=== PATIENT | female | born 1960 | race Caucasian/White ===

== ENCOUNTER 2018-01-25 11:14 | Inpatient (IN) | payer BC ==
[2018-01-19 15:39] LABS: BASOPHILS # (AUTO) 0.1 X10'3 (0-0.2); BASOPHILS % (AUTO) 0.7 % (0-1); EOSINOPHILS # (AUTO) 0.1 X10'3 (0-0.9); EOSINOPHILS % (AUTO) 1.5 % (0-6); LYMPHOCYTES # (AUTO) 1.4 X10'3 (1.1-4.8); LYMPHOCYTES % (AUTO) 16.9 % (21-51); MEAN CORPUSCULAR HEMOGLOBIN 28.7 PG (27.0-31.0); MEAN CORPUSCULAR VOLUME 84.4 FL (78-98); MEAN PLATELET VOLUME 8.5 FL (7.4-10.4); MONOCYTES # (AUTO) 0.5 X10'3 (0-0.9); MONOCYTES % (AUTO) 5.8 % (2-12); NEUTROPHILS # (AUTO) 6.1 X10'3 (1.8-7.7); NEUTROPHILS % (AUTO) 75.1 % (42-75); PRE OP HEMOGLOBIN 13.3 g/dL (12.0-16.0); PRE OP PLATELET COUNT 265 X10'3 (140-440); RED BLOOD COUNT 4.62 X10'6 (4.20-5.60)
[2018-01-19 15:50] LABS: PRE OP PROTIME 10.1 SECONDS (9.0-12.0)
[2018-01-19 16:03] LABS: ALBUMIN 3.9 G/DL (3.4-5.0); ALBUMIN/GLOBULIN RATIO 1.2 (1.1-1.5); ALKALINE PHOSPHATASE 88 IU/L (46-116); BLOOD UREA NITROGEN 16 MG/DL (7-18); CALCIUM 8.6 MG/DL (8.5-10.1); CHLORIDE 106 MMOL/L (99-107); CREATININE 0.84 MG/DL (0.40-0.90); PRE OP ALT 28 U/L (30-65); PRE OP ANION GAP 9 (8-16); PRE OP AST 15 U/L (10-37); PRE OP BILIRUB, TOTAL 0.4 MG/DL (0.0-1.0); PRE OP GLUCOSE 103 MG/DL (70-104); PRE OP SODIUM 145 MMOL/L (135-145); TOTAL CARBON DIOXIDE 30.1 MMOL/L (24-32); TOTAL PROTEIN 7.1 G/DL (6.4-8.2); eGFR 70 ML/MIN
[2018-01-19 16:04] LABS: PRE OP POTASSIUM 3.3 MMOL/L (3.4-5.1)
[2018-01-25] VITALS (17 sets, daily range): BP systolic 96–146; BP diastolic 53–86
[~2018-01-25] VITALS: Ht 167.6 cm; Wt 104.4 kg
[~2018-01-25 11:14] MED LIST: Cefazolin 2GM/50ML dext iso,osmotic IVPB IV ONE; LEVO137T24 PO; LOSA25TA96 PO; acetaminophen 325mg tablet PO ONE; famotidine 20mg tablet PO ONE; gabapentin 300mg capsule PO ONE; metoclopramide 5 mg/ml inj IV ONE; oxyCODONE SR 10mg (sust. release) tab -2 tabs (20mg) PO ONE; ringers solution, lacted 1,000 ML IV SCH; tranexamic acid inj. 1,000 MG in normal saline 100ml IV soln 90 ML IV ONE; vancomycin inj 1,500 MG in normal saline 300ml IV soln IV ONE
[2018-01-25 12:00] LABS: ISTAT ANION GAP 12 (8-12); ISTAT BUN 7 mg/dL (6-19); ISTAT CL 103 mmol/L (99-107); ISTAT CREATININE 0.6 mg/dL (0.6-1.1); ISTAT GLUCOSE 87 mg/dL (70-104); ISTAT HGB 12.6 g/dl (12.0-16.0); ISTAT Hct 37 %PCV (35-48); ISTAT IONIZED CALCIUM 1.16 mmol/L (1.03-1.32); ISTAT K 3.4 mmol/L (3.5-5.1); ISTAT NA 143 mmol/L (135-145); ISTAT TOTAL CO2 28 mmol/L (24-32); ISTAT eGFR > 90 ML/MIN; POC BUN/CREATININE RATIO 11.7 (6.6-38.0)
[2018-01-25] MEDS ORDERED: Thrombin (Bovine) 5,000 unit vial TP ONE (13:09)
[2018-01-25] MEDS ORDERED: ceFAZolin 1000mg inj ONE (13:09)
[2018-01-25] MEDS ORDERED: epiNEPHrine 1 mg/ml inj ONE (13:09)
[2018-01-25] MEDS ORDERED: morphine 10mg/ml inj. ONE (13:09)
[2018-01-25] MEDS ORDERED: ROPIVAcaine 0.5% (5mg/ml) 30ml vial ONE ×2 (13:09→13:11)
[2018-01-25] MEDS ORDERED: ketorolac trometh. 30mg/ml inj. ONE (13:09)
[2018-01-25] MEDS ORDERED: vancomycin 1,000mg inj ONE (13:09)
[2018-01-25] MEDS ORDERED: tetracaine 1% (10mg/ml) pres. free inj. ONE (13:11)
[2018-01-25] MEDS ORDERED: tranexamic acid inj. 1,000 MG in normal saline 100ml IV soln 100 ML IV ONE (13:20)
[2018-01-25] MEDS ORDERED: MIDAZolam 1mg/ml 10ml vial ONE (13:39)
[2018-01-25] MEDS ORDERED: LIDOcaine 2% (20mg/ml) 5ml vial ONE (14:15)
[2018-01-25] MEDS ORDERED: propofol inj 20 ML IV ONE ×3 (14:15)
[2018-01-25] MEDS ORDERED: ondansetron/PF 4mg/2ml inj IV PRN ×3 (14:50→16:30)
[2018-01-25] MEDS ORDERED: ringers solution, lacted 1,000 ML IV SCH (14:50)
[2018-01-25] MEDS ORDERED: meperidine/PF 25mg/ml syringe IV PRN ×2 (14:50)
[2018-01-25] MEDS ORDERED: hydrALAZINE 20mg/ml inj. IV PRN (14:50)
[2018-01-25] MEDS ORDERED: morphine 4 MG/ML inj SYRINge IV PRN ×2 (14:50)
[2018-01-25] MEDS ORDERED: diphenhydrAMINE 50 mg/ml inj IV PRN (14:55)
[2018-01-25] MEDS ORDERED: acetaminophen 325mg tablet PO PRN (16:30)
[2018-01-25] MEDS ORDERED: magnesium hydroxide 30ml (MOM) UD suspension PO PRN (16:30)
[2018-01-25] MEDS ORDERED: oxyCODONE IR 5mg (immed. release) tablet PO PRN (16:30)
[2018-01-25] MEDS ORDERED: diphenhydrAMINE 25mg capsule PO PRN ×2 (16:30)
[2018-01-25] MEDS ORDERED: HYDROmorphone 1 mg/ml syringe IV PRN ×2 (16:30)
[2018-01-25] MEDS ORDERED: bisacodyl 10mg suppository rectal RC PRN (16:30)
[2018-01-25] MEDS: potassium cl 20mEq in 1/2 NS 1,000 ML IV SCH (19:26)
[2018-01-25] MEDS ORDERED: NORMAL SALINE IV ONE (19:30)
[2018-01-25] MEDS ORDERED: TRANEXAMIC ACID IV ONE (19:30)
[2018-01-25] MEDS: acetaminophen 325mg tablet PO SCH (19:37)
[2018-01-25] MEDS: sennosides 8.6mg tablet PO SCH (19:59)
[2018-01-25] MEDS ORDERED: vancomycin/NS 1 GM ADD-VANTAGE 250 ML IV SCH (20:00)
[2018-01-25] MEDS: gabapentin 300mg capsule PO SCH (20:02)
[2018-01-26] VITALS (7 sets, daily range): BP systolic 96–127; BP diastolic 53–65
[2018-01-26] MEDS: potassium cl 20mEq in 1/2 NS 1,000 ML IV SCH ×3 (00:28→15:30)
[2018-01-26] MEDS: acetaminophen 325mg tablet PO SCH ×5 (02:00→20:39)
[2018-01-26] MEDS: oxyCODONE IR 5mg (immed. release) tablet PO PRN ×5 (05:23→22:44)
[2018-01-26 06:14] LABS: BASOPHILS # (AUTO) 0.1 X10'3 (0-0.2); BASOPHILS % (AUTO) 0.4 % (0-1); EOSINOPHILS # (AUTO) 0.2 X10'3 (0-0.9); EOSINOPHILS % (AUTO) 1.5 % (0-6); HEMATOCRIT 33.3 % (35.0-45.0); HEMOGLOBIN 11.4 g/dl (12.0-16.0); LYMPHOCYTES # (AUTO) 0.8 X10'3 (1.1-4.8); MEAN CORPUSCULAR HEMOGLOBIN 28.8 PG (27.0-31.0); MEAN CORPUSCULAR HGB CONC 34.1 % (33.0-36.5); MEAN CORPUSCULAR VOLUME 84.3 FL (78-98); MEAN PLATELET VOLUME 8.9 FL (7.4-10.4); MONOCYTES # (AUTO) 0.6 X10'3 (0-0.9); MONOCYTES % (AUTO) 4.4 % (2-12); NEUTROPHILS % (AUTO) 87.7 % (42-75); PLATELET COUNT 232 X10'3 (140-440); RED BLOOD COUNT 3.95 X10'6 (4.20-5.60); RED CELL DISTRIBUTION WIDTH 14.8 % (11.5-14.5); WHITE BLOOD COUNT 13.7 X10'3 (4.5-11.0)
[2018-01-26 06:21] LABS: ANION GAP 7 (8-16); CHLORIDE 105 MMOL/L (99-107); POTASSIUM 3.8 MMOL/L (3.5-5.1); SODIUM 139 MMOL/L (135-145); TOTAL CARBON DIOXIDE 26.7 MMOL/L (24-32)
[2018-01-26] MEDS: ceFAZolin 1GM/D5W- ADD-VANTAGE 50 ML IV SCH ×2 (07:41)
[2018-01-26] MEDS: enoxaparin 40mg/0.4ml syringe SQ SCH (07:43)
[2018-01-26] MEDS: gabapentin 300mg capsule PO SCH ×4 (07:43→20:39)
[2018-01-26] MEDS: levoTHYROXINE 112mcg tablet PO SCH (07:44)
[2018-01-26] MEDS: levoTHYROXINE 25mcg tablet PO SCH (07:44)
[2018-01-26] MEDS: Protein Shake (high protein) 240ml (8oz) cup PO SCH ×3 (08:00→18:00)
[2018-01-26] MEDS: sennosides 8.6mg tablet PO SCH (20:38)
[2018-01-26] MEDS ORDERED: losartan 25mg tablet PO SCH (21:00)
[2018-01-27] MEDS: potassium cl 20mEq in 1/2 NS 1,000 ML IV SCH (00:28)
[2018-01-27] MEDS: acetaminophen 325mg tablet PO SCH ×2 (02:00→05:31)
[2018-01-27] MEDS: oxyCODONE IR 5mg (immed. release) tablet PO PRN ×2 (02:30→06:26)
[2018-01-27 06:00] VITALS: BP 132/71
[2018-01-27 06:53] LABS: BASOPHILS # (AUTO) 0.1 X10'3 (0-0.2); BASOPHILS % (AUTO) 0.7 % (0-1); EOSINOPHILS # (AUTO) 0.1 X10'3 (0-0.9); EOSINOPHILS % (AUTO) 0.7 % (0-6); HEMATOCRIT 34.4 % (35.0-45.0); HEMOGLOBIN 11.8 g/dl (12.0-16.0); LYMPHOCYTES # (AUTO) 1.1 X10'3 (1.1-4.8); MEAN CORPUSCULAR HEMOGLOBIN 28.7 PG (27.0-31.0); MEAN CORPUSCULAR HGB CONC 34.2 % (33.0-36.5); MEAN CORPUSCULAR VOLUME 83.9 FL (78-98); MONOCYTES # (AUTO) 0.9 X10'3 (0-0.9); MONOCYTES % (AUTO) 8.2 % (2-12); NEUTROPHILS # (AUTO) 8.7 X10'3 (1.8-7.7); NEUTROPHILS % (AUTO) 80.4 % (42-75); PLATELET COUNT 211 X10'3 (140-440); RED CELL DISTRIBUTION WIDTH 15.3 % (11.5-14.5); WHITE BLOOD COUNT 10.8 X10'3 (4.5-11.0)
[2018-01-27] MEDS: levoTHYROXINE 112mcg tablet PO SCH (07:14)
[2018-01-27] MEDS: levoTHYROXINE 25mcg tablet PO SCH (07:14)
[2018-01-27] MEDS: enoxaparin 40mg/0.4ml syringe SQ SCH (08:35)
[2018-01-27] MEDS: gabapentin 300mg capsule PO SCH (08:35)
[2018-01-27] MEDS ORDERED: acetaminophen 325mg tablet PO PRN (16:30)
== END 2018-01-27 09:27 | disposition home or self-care (01) | DRG 470 ==
LOC: PAS IN 11:14 → EDSTATUS 13:15 → ORTHO 4S 17:55
PROVIDERS: ADMIT Orthopaedic Surgery; ATTEND Orthopaedic Surgery
PROC: 8E0Y0CZ Robotic Assisted Procedure of Lower Extremity, Open Approach (ICD-10-PCS; 2018-01-25)
PROC: 0SRD069 Replacement of Left Knee Joint with Oxidized Zirconium on Polyethylene Synthetic Substitute, Cemented, Open Approach (ICD-10-PCS; principal; 2018-01-25 13:39)
DX: M17.12 Unilateral primary osteoarthritis, left knee (principal); D62 Acute posthemorrhagic anemia; E03.9 Hypothyroidism, unspecified; I10 Essential (primary) hypertension; G47.30 Sleep apnea, unspecified
CPT/HCPCS: 0232T; Z7506; 36415; 80047; 80051; 80053; 84443; 85025; 85610; 85730; 87070; 97110; 97116; 97161; A6455; A7000; C1713; C1758; C1776; J0171; J0690; J1650; J1885; J2001; J2250; J2270; J2405; J2704; J2765; J2795; J3370; J7030; J7120

== ENCOUNTER 2023-10-05 10:53 | Outpatient (CLI) | payer BC ==
[~2023-10-05 10:53] MED LIST changes: -Cefazolin 2GM/50ML dext iso,osmotic IVPB IV ONE; +LOSA-415 PO; -LOSA25TA96 PO; -acetaminophen 325mg tablet PO ONE; -famotidine 20mg tablet PO ONE; -gabapentin 300mg capsule PO ONE; -metoclopramide 5 mg/ml inj IV ONE; -oxyCODONE SR 10mg (sust. release) tab -2 tabs (20mg) PO ONE; -ringers solution, lacted 1,000 ML IV SCH; -tranexamic acid inj. 1,000 MG in normal saline 100ml IV soln 90 ML IV ONE; -vancomycin inj 1,500 MG in normal saline 300ml IV soln IV ONE
== END 2023-10-05 23:59 | disposition home or self-care (01) ==
LOC: 64 CT 10:53
PROVIDERS: ATTEND Internal Medicine Interventional Cardiology
DX: Z13.6 Encounter for screening for cardiovascular disorders (principal); I10 Essential (primary) hypertension; I25.10 Atherosclerotic heart disease of native coronary artery without angina pectoris; E78.5 Hyperlipidemia, unspecified; E07.9 Disorder of thyroid, unspecified; E66.3 Overweight; M47.814 Spondylosis without myelopathy or radiculopathy, thoracic region
CPT/HCPCS: 75571